=== PATIENT | female | born 1970 | race Two or more races ===

== ENCOUNTER 2017-09-10 05:58 | Day surgery (SDC) | payer OTHER | END 2017-09-10 09:10 | disposition home or self-care (01) | LOC: AMB-ENDOS 05:58 | DX: K57.32 Diverticulitis of large intestine without perforation or abscess without bleeding (principal); K64.0 First degree hemorrhoids ==

== ENCOUNTER 2018-04-21 14:01 | Inpatient (IN) | payer OTHER ==
[~2018-04-21] VITALS: Ht 121.9 cm; Wt 5.0 kg
[2018-04-21] MEDS ORDERED: ASPIR 8181 MG (14:08)
--- NOTE | 2018-04-21 14:09 | NUR ---
PACIENTE ALERTA Y ORIENTADA POR MELANIE ESFERAS QUIEN REFIERE DOLOR ABDOMINAL DESDE SANTHOSH. PACIENTE CON HX DE DIVERTICULITIS.
--- NOTE | 2018-04-21 14:56 | NUR ---
SE RECIBE PTE ALERTA Y ORIENTADA X3, SE ORIENTA A TE SOBRE TX MEDICO. SE CANALIZA A PTE Y SE LE REALIZA MUESTRAS DE SANGRES CON EL USO DE MEDIDAS ASEPTICAS. SE LE ENTREGA A PTE CONTRASTE PO.
--- NOTE | 2018-04-22 07:24 | NUR ---
PACIENTE ALERTA Y ORIENTADA POR MELANIE ESFERAS EN ESTRELLITA CON BARANDAS ELEVADAS POR GARNICA SEGURIDAD. PACIENTE ALERTA Y ORIENTADA POR MELANIE ESFERAS. SE OBSERVA H/L PATENTE BERTRAND DE EDEMA Y ENROJECIMIENTO. PENDIENTE CONSULTA CON DR. GOMEZ.
== END 2018-04-27 13:09 | disposition home or self-care (01) | DRG 392 ==
LOC: ER 14:01 → MEDJ 04-22 09:11 → SEC-K 04-22 09:11 → MEDJ 04-22 12:07
PROVIDERS: ADMIT Internal Medicine
DX: K57.32 Diverticulitis of large intestine without perforation or abscess without bleeding (principal)

== ENCOUNTER 2018-06-06 14:15 | Inpatient (IN) | payer OTHER ==
[~2018-06-06] VITALS: Ht 162.6 cm; Wt 71.7 kg
[~2018-06-06 14:15] MED LIST: ASPIR 8181 MG
[2018-06-06] MEDS ORDERED: SINGULAIR10 MG PO (16:10)
== END 2018-06-17 19:23 | disposition home or self-care (01) | DRG 330 ==
LOC: O/R 06-14 05:22 → SURH 06-14 05:22
PROVIDERS: ADMIT Colon & Rectal Surgery
PROC: 3E0F7GC Introduction of Other Therapeutic Substance into Respiratory Tract, Via Natural or Artificial Opening (ICD-10-PCS; 2018-06-14)
PROC: 0DTN4ZZ Resection of Sigmoid Colon, Percutaneous Endoscopic Approach (ICD-10-PCS; principal; 2018-06-14 07:00)
DX: K57.20 Diverticulitis of large intestine with perforation and abscess without bleeding (principal); K92.1 Melena; K58.0 Irritable bowel syndrome with diarrhea; J45.20 Mild intermittent asthma, uncomplicated

== ENCOUNTER 2020-05-31 07:12 | Day surgery (SDC) | payer OTHER ==
[~2020-05-31 07:12] MED LIST changes: +SINGULAIR10 MG PO
== END 2020-05-31 12:45 | disposition home or self-care (01) ==
LOC: AMB-ENDOS 07:12
PROVIDERS: ATTEND Colon & Rectal Surgery
DX: K62.89 Other specified diseases of anus and rectum (principal); K64.1 Second degree hemorrhoids